=== PATIENT | male | born 1955 | race Hispanic/Latino ===

== ENCOUNTER 2023-01-26 09:03 | Emergency (ER) | payer MEDICARE ==
[2023-01-26] MEDS ORDERED: Aspirin Chewable 81 MG TAB ONE (09:43)
[2023-01-26 09:45] LABS: #Lymphocytes 1.2 thou/uL (1.20-3.40); #Monocytes 0.5 thou/uL (0.11-0.59); #Neutrophils 3.4 thou/uL (1.40-6.50); %Basophils 0.8 % (0.0-1.0); %Eosinophils 0.7 % (0.0-10.0); %Lymphocytes 22.5 % (21.0-51.0); %Monocytes 9.7 % (0.0-10.0); %Neutrophils 66.4 % (42.0-75.0); Hematocrit 44.2 % (42.0-52.0); Hemoglobin 14.7 g/dL (14.0-18.0); Mean Corpuscular HGB CONC 33.3 g/dL (32.0-36.0); Mean Corpuscular Hemoglobin 33.7 pg (27.0-31.0); Mean Platelet Volume 12.4 fL (7.4-10.4); Platelet Count 186 10x3/uL (130-400); RBC Distribution Width 12.2 % (11.5-14.5); Red Blood Cell (RBC) Count 4.37 mill/uL (4.70-6.10); White Blood Cell (WBC) Count 5.1 10x3/uL (4.8-10.8)
[2023-01-26 09:49] LABS: ALT (SGPT) 20 U/L (8-55); AST (SGOT) 172 U/L (5-34); Albumin 3.4 g/dL (3.4-4.8); Alkaline Phosphatase 277 U/L (40-110); Anion Gap 17 mmol/L (10-20); BUN (Urea Nitrogen) 39 mg/dL (8.4-25.7); Bilirubin, Total 0.7 mg/dL (0.2-1.2); Calc. Creatinine Clearance 0 mL/min (70-130); Calcium 9.3 mg/dL (7.8-10.44); Carbon Dioxide 21 mmol/L (23-31); Chloride 104 mmol/L (98-107); Estimated GFR 31; Glucose 196 mg/dL (80-115); Potassium 4.4 mmol/L (3.5-5.1); Protein, Total 7.4 g/dL (5.8-8.1); Sodium 138 mmol/L (136-145)
[2023-01-26 10:11] LABS: Troponin I 25.554 ng/mL (< 0.028)
== END 2023-01-26 12:15 | disposition short-term general hospital (02) ==
LOC: NAV ERS 09:03
DX: R07.89 Other chest pain (principal); K21.9 Gastro-esophageal reflux disease without esophagitis; R79.89 Other specified abnormal findings of blood chemistry; E11.9 Type 2 diabetes mellitus without complications; Z79.899 Other long term (current) drug therapy; Z79.4 Long term (current) use of insulin; Z79.82 Long term (current) use of aspirin
CPT/HCPCS: 71045; 80053; 83880; 84484; 85025; 85379; 93005; 96372; J1650